=== PATIENT | male | born 1955 | race American Indian/Alaskan Native ===

== ENCOUNTER 2018-05-18 17:32 | Emergency (ER) | payer SELFPAY ==
[2018-05-18 17:51] VITALS: BP 131/87
[2018-05-18] MEDS ORDERED: NACL 0.9% 1000 ML 1,000 ML IV ONE (17:51)
[2018-05-18 18:18] LABS: Alanine Aminotransferase 23 units/L (7-56); Albumin 4.4 g/dL (3.9-5); BUN/Creatinine Ratio 16; Blood Urea Nitrogen 13 mg/dL (9-20); Calcium 9.5 mg/dL (8.4-10.2); Hemolysis Index 11; Lipase 30 units/L (13-60)
[2018-05-18 18:23] LABS: Bilirubin,Urine NEG (Negative); Blood,Urine LG (Negative); Calcium Oxalate Crystals,Urine 1+; Color,Urine Yellow (Yellow); Mucus,Urine 3+ /HPF
[2018-05-18 18:28] LABS: RBC,Urine > 182.0 /HPF (0.0-6.0)
[2018-05-18 18:37] LABS: Basophils # (Auto) 0.1 K/mm3 (0.0-0.1); Eosinophils # (Auto) 0.2 K/mm3 (0.0-0.4); Eosinophils % (Auto) 4.4 % (0.0-4.3); Hematocrit 42.2 % (35.5-45.6); Hemoglobin 14.8 gm/dl (11.8-15.2); Lymphocytes # (Auto) 2.5 K/mm3 (1.2-5.4); Lymphocytes % (Auto) 47.9 % (13.4-35.0); Mean Corpuscular HGB Conc 35 % (32-34); Mean Corpuscular Hemoglobin 34 pg (28-32); Mean Corpuscular Volume 98 fl (84-94); Monocytes # (Auto) 0.6 K/mm3 (0.0-0.8); Monocytes % (Auto) 11.3 % (0.0-7.3); Platelet Count 161 K/mm3 (140-440); Red Cell Distribution Width 13.5 % (13.2-15.2)
== END 2018-05-18 19:30 | disposition left against medical advice (07) ==
LOC: ED 17:32
DX: R10.9 Unspecified abdominal pain (principal); Z53.21 Procedure and treatment not carried out due to patient leaving prior to being seen by health care provider
CPT/HCPCS: 36415; 80053; 81001; 83690; 85025

== ENCOUNTER 2018-07-26 07:22 | Emergency (ER) | payer MEDICARE ==
[2018-07-26 07:52] VITALS: BP 149/83
[2018-07-26] MEDS ORDERED: VALIUM PO ONE (09:54)
[2018-07-26] MEDS ORDERED: SOLU-Medrol IV ONE (09:54)
[2018-07-26] MEDS ORDERED: MORPHINE IM ONE (09:55)
[2018-07-26] MEDS ORDERED: MOTRIN PO ONE (09:55)
[2018-07-26] MEDS ORDERED: ZOFRAN ODT PO ONE (09:55)
--- NOTE | 2018-07-26 09:58 | Emergency Department Report ---
ED Back Pain/Injury HPI - General Chief Complaint: Back Pain/Injury Stated Complaint: BACK PAIN Time Seen by Provider: 07/26/18 09:25 Source: patient Limitations: No Limitations - History of Present Illness Initial Comments: Patient presents to the emergency department with chief complaint lower back pain. Patient states he was getting out of his chest last night when he began to have significant amount of pain to the lower aspect of his back. Patient states he had a fusion of the cervical spine at 2011 and 2009 with good results. This is the first incidence of back pain since that time. Patient denies any rebound with his bowel or bladder. Also has good sensation in the region -: Sudden Similar Symptoms Previously: Yes Place: home Radiation: left leg, right leg Severity: moderate Severity scale (0 -10): 7 Quality: sharp Consistency: constant Improves With: other (rest) Worsens With: movement Context: other (reaching) Associated Symptoms: denies other symptoms - Related Data Home Medications Medication Instructions Recorded Confirmed Last Taken Valsartan [Diovan] 320 mg PO QDAY 04/01/14 04/01/14 04/01/14 08:00 metFORMIN [Glucophage] 04/01/14 04/01/14 Unknown Previous Rx's Medication Instructions Recorded Last Taken Type Cyclobenzaprine HCl [Flexeril] 10 mg PO Q8H PRN #21 tablet 04/01/14 Unknown Rx HYDROcodone/APAP 5-325 [[place] 1 each PO Q6HR PRN #16 tablet 04/01/14 Unknown Rx 5-325 mg TAB] Prednisone [Prednisone 10 mg 10 mg PO .TAPER #1 tab.ds.pk 01/22/15 Unknown Rx (6-Day Pack, 21 Tabs)] traMADol [Ultram 50 MG tab] 50 mg PO Q6HR PRN #10 tablet 01/22/15 Unknown Rx Ibuprofen [Motrin 800 MG tab] 800 mg PO Q8HR PRN #30 tablet 11/26/15 Unknown Rx traMADol [Ultram 50 MG tab] 50 mg PO Q6HR PRN #15 tablet 11/26/15 Unknown Rx Ibuprofen [Motrin 600 MG tab] 600 mg PO Q8H PRN #10 tablet 03/07/16 Unknown Rx Cyclobenzaprine [Flexeril 10 MG 10 mg PO TID PRN #14 tablet 09/29/16 Unknown Rx TAB] Naproxen [Naprosyn] 500 mg PO BID #30 tablet 09/29/16 Unknown Rx Diazepam [Valium] 5 mg PO Q12HR PRN #10 tablet 07/26/18 Unknown Rx HYDROcodone/ACETAMINOPHEN [[place] 1 each PO Q6HR PRN #20 tablet 07/26/18 Unknown Rx 5-325 Tablet] Ibuprofen [Motrin] 800 mg PO Q8HR PRN #30 tablet 07/26/18 Unknown Rx Prednisone [predniSONE 10 mg 10 mg PO .TAPER #1 tab.ds.pk 07/26/18 Unknown Rx (6-Day Pack, 21 Tabs)] Allergies Allergy/AdvReac Type Severity Reaction Status Date / Time No Known Allergies Allergy Unverified 04/01/14 19:44 ED Review of Systems ROS: Stated complaint: BACK PAIN Other details as noted in HPI Constitutional: denies: chills, fever Eyes: denies: eye pain, eye discharge, vision change ENT: denies: ear pain, throat pain Respiratory: denies: cough, shortness of breath, wheezing Cardiovascular: denies: chest pain, palpitations Endocrine: no symptoms reported Gastrointestinal: denies: abdominal pain, nausea, diarrhea Genitourinary: denies: urgency, dysuria Musculoskeletal: back pain. denies: joint swelling, arthralgia Skin: denies: rash, lesions Neurological: denies: headache, weakness, paresthesias Psychiatric: denies: anxiety, depression Hematological/Lymphatic: denies: easy bleeding, easy bruising ED Past Medical Hx - Past Medical History Hx Hypertension: Yes Hx Diabetes: Yes (no meds) - Surgical History Additional Surgical History: left foot bunion removal. Bilateral wrist fractures. Carpal tunnel surgery right hand. Tonsilectomy. Back surgery L4- L5 01/2013 - Social History Smoking Status: Never Smoker Substance Use Type: None - Medications Home Medications: Home Medications Medication Instructions Recorded Confirmed Last Taken Type Cyclobenzaprine HCl [Flexeril] 10 mg PO Q8H PRN #21 tablet 04/01/14 Unknown Rx HYDROcodone/APAP 5-325 [[place] 1 each PO Q6HR PRN #16 tablet 04/01/14 Unknown Rx 5-325 mg TAB] Valsartan [Diovan] 320 mg PO QDAY 04/01/14 04/01/14 04/01/14 08:00 History metFORMIN [Glucophage] 04/01/14 04/01/14 Unknown History Prednisone [Prednisone 10 mg 10 mg PO .TAPER #1 tab.ds.pk 01/22/15 Unknown Rx (6-Day Pack, 21 Tabs)] traMADol [Ultram 50 MG tab] 50 mg PO Q6HR PRN #10 tablet 01/22/15 Unknown Rx Ibuprofen [Motrin 800 MG tab] 800 mg PO Q8HR PRN #30 tablet 11/26/15 Unknown Rx traMADol [Ultram 50 MG tab] 50 mg PO Q6HR PRN #15 tablet 11/26/15 Unknown Rx Ibuprofen [Motrin 600 MG tab] 600 mg PO Q8H PRN #10 tablet 03/07/16 Unknown Rx Cyclobenzaprine [Flexeril 10 MG 10 mg PO TID PRN #14 tablet 09/29/16 Unknown Rx TAB] Naproxen [Naprosyn] 500 mg PO BID #30 tablet 09/29/16 Unknown Rx Diazepam [Valium] 5 mg PO Q12HR PRN #10 tablet 07/26/18 Unknown Rx HYDROcodone/ACETAMINOPHEN [[place] 1 each PO Q6HR PRN #20 tablet 07/26/18 Unknown Rx 5-325 Tablet] Ibuprofen [Motrin] 800 mg PO Q8HR PRN #30 tablet 07/26/18 Unknown Rx Prednisone [predniSONE 10 mg 10 mg PO .TAPER #1 tab.ds.pk 07/26/18 Unknown Rx (6-Day Pack, 21 Tabs)] ED Physical Exam - General Limitations: No Limitations General appearance: alert, in no apparent distress - Head Head exam: Present: atraumatic, normocephalic - Eye Eye exam: Present: normal appearance - ENT ENT exam: Present: mucous membranes moist - Neck Neck exam: Present: normal inspection - Respiratory Respiratory exam: Present: normal lung sounds bilaterally. Absent: respiratory distress, wheezes, rales - Cardiovascular Cardiovascular Exam: Present: regular rate, normal rhythm. Absent: systolic murmur, diastolic murmur, rubs, gallop - GI/Abdominal GI/Abdominal exam: Present: soft, normal bowel sounds. Absent: distended, tenderness - Rectal Rectal exam: Present: deferred - Extremities Exam Extremities exam: Present: normal inspection - Back Exam Back exam: Present: other (Limited range of motion secondary to pain; spasms present in the paralumbar region) - Neurological Exam Neurological exam: Present: alert, oriented X3 - Psychiatric Psychiatric exam: Present: normal affect, normal mood - Skin Skin exam: Present: warm, dry, intact, normal color. Absent: rash ED Course Vital Signs 07/26/18 07/26/18 07/26/18 07:43 10:19 10:25 Temperature 97.4 F L Pulse Rate 45 L Respiratory 18 18 18 Rate Blood Pressure 149/83 O2 Sat by Pulse 96 Oximetry 07/26/18 10:34 Temperature Pulse Rate Respiratory 18 Rate Blood Pressure O2 Sat by Pulse Oximetry ED Medical Decision Making - Medical Decision Making Patient has significant improvement of pain with medications Critical care attestation.: If time is entered above; I have spent that time in minutes in the direct care of this critically ill patient, excluding procedure time. ED Disposition Clinical Impression: Lower back pain, Back muscle spasm Disposition: TO HOME OR SELFCARE Is pt being admited?: No Does the pt Need Aspirin: No Condition: Stable Instructions: Acute Low Back Pain (ED) Additional Instructions: return if worse Prescriptions: Diazepam [Valium] 5 mg PO Q12HR PRN #10 tablet PRN Reason: Spasms HYDROcodone/ACETAMINOPHEN [[place] 5-325 Tablet] 1 each PO Q6HR PRN #20 tablet PRN Reason: pain Ibuprofen [Motrin] 800 mg PO Q8HR PRN #30 tablet PRN Reason: pain Prednisone [predniSONE 10 mg (6-Day Pack, 21 Tabs)] 10 mg PO .TAPER #1 tab.ds.pk Referrals: FAWN ROSARIO MD [Primary Care Provider] - 3-5 Days [facility] [Provider Group] - 3-5 Days NYLA ALONZO MD [Staff Physician] - 3-5 Days Time of Disposition: 10:48
[2018-07-26] MEDS ORDERED: SOLU-Medrol IM ONE (10:27)
== END 2018-07-26 10:56 | disposition home or self-care (01) ==
LOC: ED 07:22
DX: M54.5 Low back pain (principal); M62.830 Muscle spasm of back; I10 Essential (primary) hypertension; E11.9 Type 2 diabetes mellitus without complications
CPT/HCPCS: 96372; 99283; J2270; J2930; Q0162

== ENCOUNTER 2019-04-15 07:03 | Emergency (ER) | payer MEDICARE ==
[2019-04-15 07:20] VITALS: BP 122/88
--- NOTE | 2019-04-15 08:20 | Emergency Department Report ---
- General Chief Complaint: Wound/Laceration Stated Complaint: LAC TO L INDEX FINGER Time Seen by Provider: 04/15/19 08:00 Source: patient Mode of arrival: Ambulatory Limitations: No Limitations - History of Present Illness Initial Comments: Patient is a 63-year-old -[place] male who is presenting status post laceration to his left index finger. This occurred approximately 10 hours ago. Patient states he put a Band-Aid on and went to sleep but this morning when he took the bandage off it began bleeding again. Patient was washing dishes when this occurred. Patient has very minimal pain states is 2 out of 10 in severity. Patient has no complaints at this time. - Related Data Home Medications Medication Instructions Recorded Confirmed Last Taken Valsartan [Diovan] 320 mg PO QDAY 04/01/14 04/01/14 04/01/14 08:00 metFORMIN [Glucophage] 04/01/14 04/01/14 Unknown Previous Rx's Medication Instructions Recorded Last Taken Type Cyclobenzaprine HCl [Flexeril] 10 mg PO Q8H PRN #21 tablet 04/01/14 Unknown Rx HYDROcodone/APAP 5-325 [[place] 1 each PO Q6HR PRN #16 tablet 04/01/14 Unknown Rx 5-325 mg TAB] Prednisone [Prednisone 10 mg 10 mg PO .TAPER #1 tab.ds.pk 01/22/15 Unknown Rx (6-Day Pack, 21 Tabs)] traMADol [Ultram 50 MG tab] 50 mg PO Q6HR PRN #10 tablet 01/22/15 Unknown Rx Ibuprofen [Motrin 800 MG tab] 800 mg PO Q8HR PRN #30 tablet 11/26/15 Unknown Rx traMADol [Ultram 50 MG tab] 50 mg PO Q6HR PRN #15 tablet 11/26/15 Unknown Rx Ibuprofen [Motrin 600 MG tab] 600 mg PO Q8H PRN #10 tablet 03/07/16 Unknown Rx Cyclobenzaprine [Flexeril 10 MG 10 mg PO TID PRN #14 tablet 09/29/16 Unknown Rx TAB] Naproxen [Naprosyn] 500 mg PO BID #30 tablet 09/29/16 Unknown Rx Diazepam [Valium] 5 mg PO Q12HR PRN #10 tablet 07/26/18 Unknown Rx HYDROcodone/ACETAMINOPHEN [[place] 1 each PO Q6HR PRN #20 tablet 07/26/18 Unknown Rx 5-325 Tablet] Ibuprofen [Motrin] 800 mg PO Q8HR PRN #30 tablet 07/26/18 Unknown Rx Prednisone [predniSONE 10 mg 10 mg PO .TAPER #1 tab.ds.pk 07/26/18 Unknown Rx (6-Day Pack, 21 Tabs)] Allergies Allergy/AdvReac Type Severity Reaction Status Date / Time No Known Allergies Allergy Unverified 04/01/14 19:44 ED Review of Systems ROS: Stated complaint: LAC TO L INDEX FINGER Other details as noted in HPI Comment: All other systems reviewed and negative ED Past Medical Hx - Past Medical History Previous Medical History?: Yes Hx Hypertension: Yes Hx Diabetes: Yes (no meds) Hx Arthritis: Yes - Surgical History Past Surgical History?: Yes Additional Surgical History: left foot bunion removal. Bilateral wrist fractur es. Carpal tunnel surgery right hand. Tonsilectomy. Back surgery L4-L5 01/2013 - Social History Smoking Status: Never Smoker Substance Use Type: None - Medications Home Medications: Home Medications Medication Instructions Recorded Confirmed Last Taken Type Cyclobenzaprine HCl [Flexeril] 10 mg PO Q8H PRN #21 tablet 04/01/14 Unknown Rx HYDROcodone/APAP 5-325 [[place] 1 each PO Q6HR PRN #16 tablet 04/01/14 Unknown Rx 5-325 mg TAB] Valsartan [Diovan] 320 mg PO QDAY 04/01/14 04/01/14 04/01/14 08:00 History metFORMIN [Glucophage] 04/01/14 04/01/14 Unknown History Prednisone [Prednisone 10 mg 10 mg PO .TAPER #1 tab.ds.pk 01/22/15 Unknown Rx (6-Day Pack, 21 Tabs)] traMADol [Ultram 50 MG tab] 50 mg PO Q6HR PRN #10 tablet 01/22/15 Unknown Rx Ibuprofen [Motrin 800 MG tab] 800 mg PO Q8HR PRN #30 tablet 11/26/15 Unknown Rx traMADol [Ultram 50 MG tab] 50 mg PO Q6HR PRN #15 tablet 11/26/15 Unknown Rx Ibuprofen [Motrin 600 MG tab] 600 mg PO Q8H PRN #10 tablet 03/07/16 Unknown Rx Cyclobenzaprine [Flexeril 10 MG 10 mg PO TID PRN #14 tablet 09/29/16 Unknown Rx TAB] Naproxen [Naprosyn] 500 mg PO BID #30 tablet 09/29/16 Unknown Rx Diazepam [Valium] 5 mg PO Q12HR PRN #10 tablet 07/26/18 Unknown Rx HYDROcodone/ACETAMINOPHEN [[place] 1 each PO Q6HR PRN #20 tablet 07/26/18 Unknown Rx 5-325 Tablet] Ibuprofen [Motrin] 800 mg PO Q8HR PRN #30 tablet 07/26/18 Unknown Rx Prednisone [predniSONE 10 mg 10 mg PO .TAPER #1 tab.ds.pk 07/26/18 Unknown Rx (6-Day Pack, 21 Tabs)] ED Physical Exam - General Limitations: No Limitations General appearance: alert, in no apparent distress - Head Head exam: Present: atraumatic, normocephalic - Eye Eye exam: Present: normal appearance - ENT ENT exam: Present: mucous membranes moist - Neck Neck exam: Present: normal inspection - Respiratory Respiratory exam: Absent: respiratory distress - GI/Abdominal GI/Abdominal exam: Present: soft - Rectal Rectal exam: Present: deferred - Extremities Exam Extremities exam: Present: normal inspection - Back Exam Back exam: Present: normal inspection - Neurological Exam Neurological exam: Present: alert, oriented X3 - Psychiatric Psychiatric exam: Present: normal affect, normal mood - Skin Skin exam: Present: warm, dry, intact, normal color, other (patient with a 1/2 cm laceration to the left index finger.). Absent: rash ED Course Vital Signs 04/15/19 07:18 Temperature 97.8 F Pulse Rate 67 Respiratory 16 Rate Blood Pressure 122/88 [Left] O2 Sat by Pulse 98 Oximetry - Laceration /Wound Repair Left Finger Wound Location: upper extremity (left index finger) Wound Length (cm): 2 Wound's Depth, Shape: superficial, linear Wound Explored: clean Wound Repaired With: Dermabond (2 steristrips placed to approximate the wound edges) Critical care attestation.: If time is entered above; I have spent that time in minutes in the direct care of this critically ill patient, excluding procedure time. ED Disposition Clinical Impression: Finger laceration Qualifiers: Encounter type: initial encounter Finger: index finger Damage to nail status: without damage Foreign body presence: without foreign body Laterality: left Qualified Code(s): S61.211A - Laceration without foreign body of left index finger without damage to nail, initial encounter Disposition: DC-01 TO HOME OR SELFCARE Is pt being admited?: No Does the pt Need Aspirin: No Condition: Stable Instructions: Skin Adhesive Care (ED) Referrals: EUGENIO ALMARAZ MD [Primary Care Provider] - 3-5 Days Time of Disposition: 08:37
== END 2019-04-15 08:45 | disposition home or self-care (01) ==
LOC: ED 07:03
DX: S61.211A Laceration without foreign body of left index finger without damage to nail, initial encounter (principal); I10 Essential (primary) hypertension; E11.9 Type 2 diabetes mellitus without complications; M19.90 Unspecified osteoarthritis, unspecified site; W45.8XXA Other foreign body or object entering through skin, initial encounter; Y93.89 Activity, other specified; Y92.89 Other specified places as the place of occurrence of the external cause; Y99.8 Other external cause status
CPT/HCPCS: 99282